=== PATIENT | female | born 2000 | race American Indian/Alaskan Native ===

== ENCOUNTER 2022-06-06 15:12 | Emergency (ER) | payer SELFPAY ==
[2022-06-06 17:03] LABS: Bilirubin,Urine NEG (Negative); Blood,Urine NEG (Negative); Color,Urine Yellow (Yellow); Protein,Urine <15 mg/dL mg/dL (Negative); Urobilinogen,Urine < 2.0 mg/dL (<2.0)
[2022-06-06 17:05] LABS: Basophils % (Auto) 0.7 % (0.0-1.8); Eosinophils # (Auto) 0.1 K/mm3 (0.0-0.4); Eosinophils % (Auto) 1.3 % (0.0-4.3); Hematocrit 31.3 % (30.3-42.9); Lymphocytes # (Auto) 1.7 K/mm3 (1.2-5.4); Lymphocytes % (Auto) 26.4 % (13.4-35.0); Mean Corpuscular HGB Conc 32 % (30-34); Mean Corpuscular Volume 85 fl (79-97); Monocytes # (Auto) 0.3 K/mm3 (0.0-0.8); Platelet Count 395 K/mm3 (140-440); Red Blood Count 3.67 M/mm3 (3.65-5.03); Red Cell Distribution Width 16.3 % (13.2-15.2)
[2022-06-06 17:10] LABS: Mucus,Urine 2+ /HPF
[2022-06-06 17:24] LABS: Alanine Aminotransferase 11 units/L (7-56); Albumin 4.7 g/dL (3.9-5); Blood Urea Nitrogen 9 mg/dL (7-17); Calcium 9.4 mg/dL (8.4-10.2); Hemolysis Index 14
[2022-06-06 17:26] LABS: BUN/Creatinine Ratio 13
[2022-06-06 17:37] LABS: Amphetamine Screen,Urine Negative; Benzodiazepines Screen,Urine Negative; Cocaine Screen,Urine Negative; Methadone Screen,Urine Negative; Opiate Screen,Urine Negative
[2022-06-06 17:38] LABS: Cannabinoid Screen,Urine Positive
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
[2022-06-07] MEDS: DIVALPROEX DR 125 MG TAB PO SCH ×3 (10:53→22:15)
--- NOTE | 2022-06-07 14:42 | Event Note ---
Date: 06/07/22 Patient evaluated by mental health cytology laboratory manager. 1013 requested. Patient currently calm and cooperative.
[2022-06-07] MEDS: traZODone 50 MG TAB PO SCH (22:15)
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
[2022-06-08] MEDS: FLUoxetine 10 MG TAB PO SCH (10:12)
--- NOTE | 2022-06-08 11:27 | Event Note ---
Date: 06/08/22 I HAVE SEEN THE PATIENT MYSELF WHO DENIES SI/HI BUT APPEARS TO BE FLAT EFFECT. BEHAVIOR HEALTH RECOMMENDS THE FOLLOWING:. [address] 125mg po TID Start Prozac 10mg po daily Trazodone 50mg po qhs Medical: per primary Sitter: defer to primary Disposition: Recommend acute psychiatric inpatient treatment Will follow. Thanks Case staffed with Dr. Rolon
[2022-06-08] MEDS: DIVALPROEX DR 125 MG TAB PO SCH ×2 (14:32→21:30)
[2022-06-08] MEDS: traZODone 50 MG TAB PO SCH (23:08)
[2022-06-09] MEDS: DIVALPROEX DR 125 MG TAB PO SCH (07:50)
[2022-06-09] MEDS: FLUoxetine 10 MG TAB PO SCH (09:38)
[2022-06-09 10:40] VITALS: BP 96/50
--- NOTE | 2022-06-09 10:40 | Progress Note ---
Subjective - Reason for Consult Consult date: 06/09/22 Reason for consult: agitation - Chief Complaint Chief complaint: The patient was seen today. She appears to be in a better mood. She is calm, cooperative and makes good eye contact. She says she slept well and feels good. The patient denies SI/HI and hallucinations of any. Discussed with the patient the importance of complying with her medication. She says she understands and feels much better on the meds. I spoke with the patient's mother about her progress, and treatment plan. She says she is comfortable with the patient discharging back home with her. REVIEW OF SYSTEMS Constitutional: Negative for weight loss ENT: Negative for stridor Respiratory: Negative for cough or hemoptysis All other systems reviewed and are negative MENTAL STATUS EXAMINATION General Appearance and Behavior: Age appropriate, wearing appropriate clothes, cooperative, polite with questioning, good eye contact Cooperation: cooperative Psychomotor Behavior: Psychomotor normal Mood: better Affect and affective range: congruent with stated mood Thought Process: goal directed Thought Content: None Speech: Normal tone and pace Suicidal Ideation: Denies Homicidal Ideation: Denies Hallucination: Denies Delusions: none elicited Impulse Control: limited Insight and Judgment: limited Memory: limited Attention: Attentive Orientation: Alert and oriented Diagnoses: Mood Disorder, Unspecified Treatment Plan d/c [address] 125mg po TID Prozac 10mg po daily Trazodone 50mg po qhs Medical: per primary Sitter: defer to primary Disposition: Do not recommend acute psychiatric inpatient treatment. The patient understands that if SI/HI arise she is to seek immediate assistance. She is to follow up with outpatient psych in 7 to 14 days upon discharge Will sign off. Thanks Case staffed with Dr. Rolon Mental Status Exam - Vital signs Last Vital Signs Temp 98.5 F 06/08/22 10:42 Pulse 75 06/08/22 21:27 Resp 16 06/08/22 21:27 BP 108/55 06/08/22 21:27 Pulse Ox 100 06/08/22 21:27
== END 2022-06-09 11:23 | disposition home or self-care (01) ==
LOC: ED 15:12
DX: F39 Unspecified mood [affective] disorder (principal); F12.90 Cannabis use, unspecified, uncomplicated; F10.20 Alcohol dependence, uncomplicated; Z20.822 Contact with and (suspected) exposure to COVID-19
CPT/HCPCS: 36415; 80053; 80307; 81001; 84703; 85025; 87086; 99284; U0003; 80320; G0480